=== PATIENT | male | born 1985 | race Caucasian/White ===

== ENCOUNTER 2020-05-30 14:46 | Emergency (ER) | payer BC ==
[~2020-05-30] VITALS: Ht 175.3 cm; Wt 90.0 kg
[2020-05-30 15:04] VITALS: BP 123/73
[2020-05-30] MEDS ORDERED: BACITRACIN/POLYMYXIN B SULFATE OINT 15GM TOP ONE (15:30)
[2020-05-30] MEDS ORDERED: HYDROCODONE/ACETAMINOPHEN 5/325MG TABLET PO ONE (15:30)
[2020-05-30] MEDS ORDERED: ONDANSETRON 4MG ODT PO ONE (15:30)
[2020-05-30] MEDS ORDERED: TETANUS, DIPHTHERIA, PERTUSSIS VAC/PF 0.5ML (>7YR OLD) IM ONE (15:45)
== END 2020-05-30 16:43 | disposition home or self-care (01) ==
LOC: ER 14:46
DX: S62.394A Other fracture of fourth metacarpal bone, right hand, initial encounter for closed fracture (principal); S62.396A Other fracture of fifth metacarpal bone, right hand, initial encounter for closed fracture; W22.09XA Striking against other stationary object, initial encounter; Y93.89 Activity, other specified; Y92.89 Other specified places as the place of occurrence of the external cause
CPT/HCPCS: 29125; 73130; 90471; 90715; 99284; Q0162